=== PATIENT | male | born 1980 | race Caucasian/White ===

== ENCOUNTER 2023-10-13 04:37 | Emergency (ER) | payer SELFPAY ==
[2023-10-13 04:45] VITALS: BP 161/98; PULSE 93; RESP 16; TEMP 36.3; O2SAT 98; BMI 30.8
--- NOTE | 2023-10-13 05:03 | ED.SKABFB ---
HPI - Skin/Abscess/Foreign Bdy General Chief complaint: Skin/Abscess/Foreign Body Stated complaint: rash, hives all over Time Seen by Provider: 10/13/23 05:02 History of Present Illness HPI narrative: Patient is a 42-year-old male without significant past medical history presenting today with rash in hives. He reports it started a couple days ago he said it was like a spider bite but then it started spreading. He is some [id number] cortisone cream and Tanisha but it has continued to get worse. This morning he feels like it is just worse all over his arms and torso and back. No tongue swelling lip swelling or difficulty breathing. He denies any sort of new soaps laundry or foods. He works construction. Related Data Previous Rx's Medication Instructions Recorded prednisone 20 mg tablet 40 mg (2 x 20 mg) PO DAILY #10 tabs 10/13/23 Exam Initial Vital Signs Initial Vital Signs: GENERAL: Alert pleasant well-appearing 42-year-old and in no acute distress. HEENT: Head atraumatic,EOMI, pupils reactive, face symmetric, no evidence of tongue swelling lip swelling or angioedema CARDIOVASCULAR: Regular rate and rhythm without murmurs, rubs or gallops. RESPIRATORY: Breath sounds equal bilaterally, no wheezes rales or rhonchi. EXTREMITIES: Normal range of motion, no clubbing or edema. Neurovascularly intact NEUROLOGICAL: Alert and oriented x4. SKIN: Urticaria and hives all over arms back and abdomen MDM - Skin/Abscess/Foreign Bdy MDM Narrative Medical decision making narrative: Healthy 42-year-old male presents today with hives. He has no evidence of anaphylaxis. Unknown what he is allergic to. He is given prednisone and Benadryl here in the ED. He is supposed to work today but encouraged him with Benadryl to stay away from heavy machinery Discharge Plan Departure Patient Disposition: Home Clinical Impression: Urticaria Instructions: Hives Activity Restrictions/Additional Instructions: *You have been diagnosed with urticaria/hives *What to do: At this time you are having allergic reaction to something. If you have a recurrent episode you may require allergy testing *Continue to take medications as directed Prednisone 40 mg once a day for 5 days, start tomorrow you are given a dose in the ED Benadryl 25-50 mg every 6 hours if needed for itching-this does cause drowsiness recommend avoiding heavy machinery *Follow up with your primary care provider in 2-3 days or call [phone] *Return to ER if you should have increased difficulty breathing lip swelling tongue swelling worsening rash or any new, worsening or concerning symptoms Prescriptions: New prednisone 20 mg tablet 40 mg PO DAILY Qty: 10 0RF Stand Alone Forms: Patient Portal/API
[2023-10-13] MEDS: diphenhydrAMINE 25 MG TABLET PO (05:18)
[2023-10-13] MEDS: predniSONE 20 MG TABLET 40 MG PO (05:19)
== END 2023-10-13 05:25 | disposition home or self-care (01) ==
PROVIDERS: Emergency Provider Emergency Medicine
DX: L50.9 Urticaria, unspecified (principal)
CPT/HCPCS: 99283